=== PATIENT | male | born 1960 | race Caucasian/White ===

== ENCOUNTER 2018-12-10 00:53 | Emergency (ER) | payer OTHER ==
--- NOTE | 2018-12-10 02:13 | XR ---
EXAMINATION TYPE: XR shoulder complete LT DATE OF EXAM: 12/10/2018 COMPARISON: NONE HISTORY: Shoulder pain TECHNIQUE: 3 views FINDINGS: There is moderate narrowing of the glenohumeral joint space with spur formation. I see no f racture nor dislocation. AC joint is intact. IMPRESSION: Moderate osteoarthritis of the glenohumeral joint. No fracture seen.
--- NOTE | 2018-12-10 02:44 | ED ---
General Adult HPI - General Chief complaint: Extremity Injury, Upper Stated complaint: Shoulder Injury, [facility] Time Seen by Provider: 12/10/18 01:14 Source: patient Mode of arrival: ambulatory Limitations: no limitations - History of Present Illness Initial comments: Patient is a 58-year-old male with history of osteoarthritis of the shoulders is presenting to the emergency department with a chief complaint of shoulder pain. 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 Patient reports limited range of motion with abduction above 90. Patient reports pain along the anterior and lateral deltoid. Patient reports the pain is alleviated at rest exacerbated with movement. Patient denies any numbness or tingling. Patient has full range of motion distally to the shoulder. Patient denies taking any medication to alleviate the symptoms. Patient reports the pain is a 5 is sharp when he moves his hand. - Related Data Allergies Allergy/AdvReac Type Severity Reaction Status Date / Time bee pollen Allergy Anaphylaxis Verified 12/10/18 00:59 Review of Systems ROS Statement: Those systems with pertinent positive or pertinent negative responses have been documented in the HPI. ROS Other: All systems not noted in ROS Statement are negative. Past Medical History Past Medical History: Atrial Fibrillation History of Any Multi-Drug Resistant Organisms: None Reported Past Surgical History: Hernia Repair, Orthopedic Surgery Past Psychological History: No Psychological Hx Reported Smoking Status: Never smoker Past Alcohol Use History: None Reported Past Drug Use History: None Reported General Exam Limitations: no limitations General appearance: alert, in no apparent distress Head exam: Present: atraumatic, normocephalic, normal inspection Eye exam: Present: normal appearance, PERRL, EOMI Pupils: Present: normal accommodation ENT exam: Present: normal exam, mucous membranes moist, normal external ear exam Neck exam: Present: normal inspection, full ROM Respiratory exam: Present: normal lung sounds bilaterally Cardiovascular Exam: Present: regular rate, normal rhythm, normal heart sounds Extremities exam: Present: normal inspection (No bony abnormalities felt), tenderness (Anterior lateral left deltoid tenderness), normal capillary refill, other (+2 ulnar and radial pulses bilaterally.). Absent: full ROM (Limited range of motion above 90 with abduction) Back exam: Present: normal inspection, full ROM Neurological exam: Present: alert, oriented X3 Psychiatric exam: Present: normal affect, normal mood Skin exam: Present: warm, intact, normal color Course Vital Signs 12/10/18 12/10/18 00:55 03:03 Temperature 97.8 F 97 F L Pulse Rate 62 66 Respiratory 18 16 Rate Blood Pressure 142/88 136/100 O2 Sat by Pulse 99 97 Oximetry Medical Decision Making - Medical Decision Making Patient is a 58-year-old male with history of osteoarthritis is presenting to the emergency department with a chief complaint of shoulder pain. 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 Patient has pain and limited range of motion above 90 with abduction. Patient does have a positive Garay a positive empty can test. Shoulder x-rays negative I do suspect the patient to have some rotator cuff injury. Patient advised to apply ice compress an alternate between Tylenol and ibuprofen for pain control. Patient advised to avoid extraneous physical activity to promote healing. Patient advised to follow-up with orthopedics if symptoms don't improve within a week. Strict return parameters were thoroughly discussed the patient was understanding and agreeable. Case discussed physician. Disposition Clinical Impression: Left shoulder pain, Sprain of left shoulder Disposition: HOME SELF-CARE Condition: Stable Instructions (If sedation given, give patient instructions): Shoulder Sprain (ED) Additional Instructions: Please follow with orthopedics if symptoms do not improve. Alternate between Tylenol and ibuprofen for pain control. Apply ice compress to minimize symptoms. Is patient prescribed a controlled substance at d/c from ED?: No Referrals: Cullen Howard MD [Primary Care Provider] - 1-2 days Eddie Denton MD [STAFF PHYSICIAN] - 1-2 days Time of Disposition: 02:44
[2018-12-10 03:03] VITALS: BP 136/100; PULSE 66; RESP 16; TEMP 97
== END 2018-12-10 02:47 | disposition home or self-care (01) ==
LOC: EC 00:53
DX: S43.402A Unspecified sprain of left shoulder joint, initial encounter (principal); M19.012 Primary osteoarthritis, left shoulder; J30.1 Allergic rhinitis due to pollen; Z91.030 Bee allergy status; X50.0XXA Overexertion from strenuous movement or load, initial encounter; Y93.89 Activity, other specified; Y99.0 Civilian activity done for income or pay; Y92.69 Other specified industrial and construction area as the place of occurrence of the external cause
CPT/HCPCS: 99283

== ENCOUNTER → 2019-06-27 | Outpatient (CLI) | payer SELFPAY | END | disposition home or self-care (01) | LOC: LABWHC1 11:53 | PROVIDERS: ATTEND Family Medicine | DX: R50.9 Fever, unspecified (principal); R05 Cough; R53.81 Other malaise; Z11.59 Encounter for screening for other viral diseases | CPT/HCPCS: 87498; 87502; 87634; 87635; 87798 ==

== ENCOUNTER → 2019-08-06 | Outpatient (CLI) | payer BC | END | disposition home or self-care (01) | LOC: LABWHC1 11:13 | PROVIDERS: ATTEND Family Medicine | DX: Z11.59 Encounter for screening for other viral diseases (principal) | CPT/HCPCS: 87635 ==

== ENCOUNTER 2021-01-13 12:02 | Emergency (ER) | payer BC ==
[2021-01-13] MEDS ORDERED: ACETAMINOPHEN TAB 325 MG TAB PO STA (12:32)
--- NOTE | 2021-01-13 12:49 | ED ---
URI HPI - General Chief Complaint: Upper Respiratory Infection Stated Complaint: Covid exposure, symptoms Time Seen by Provider: 01/13/21 12:29 Source: patient, RN notes reviewed Mode of arrival: ambulatory Limitations: no limitations - History of Present Illness Initial Comments: This a 60-year-old male presents emergency Department chief complaint of fever cough congestion. 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 Patient states that he is concerning may have it. He has not taken any recent Tylenol Motrin. Temp currently 101. Patient states he did cough up some congestion or shortness of breath no chest pain does complain of body aches. - Related Data Allergies Allergy/AdvReac Type Severity Reaction Status Date / Time bee pollen Allergy Anaphylaxis Verified 01/13/21 12:20 Review of Systems ROS Statement: Those systems with pertinent positive or pertinent negative responses have been documented in the HPI. ROS Other: All systems not noted in ROS Statement are negative. Past Medical History Past Medical History: Atrial Fibrillation History of Any Multi-Drug Resistant Organisms: None Reported Past Surgical History: Hernia Repair, Orthopedic Surgery Past Psychological History: No Psychological Hx Reported Past Alcohol Use History: None Reported Past Drug Use History: None Reported General Exam Limitations: no limitations General appearance: alert, in no apparent distress Head exam: Present: atraumatic, normocephalic, normal inspection Eye exam: Present: normal appearance, PERRL, EOMI. Absent: scleral icterus, conjunctival injection, periorbital swelling ENT exam: Present: normal exam, mucous membranes moist Neck exam: Present: normal inspection, full ROM. Absent: tenderness, meningismus, lymphadenopathy Respiratory exam: Present: normal lung sounds bilaterally. Absent: respiratory distress, wheezes, rales, rhonchi, stridor Cardiovascular Exam: Present: regular rate, normal rhythm, normal heart sounds. Absent: systolic murmur, diastolic murmur, rubs, gallop, clicks Neurological exam: Present: alert Skin exam: Present: warm, dry, intact, normal color. Absent: rash Course Vital Signs 01/13/21 12:15 Temperature 101.2 F H Pulse Rate 79 Respiratory 19 Rate Blood Pressure 129/85 O2 Sat by Pulse 96 Oximetry Medical Decision Making - Medical Decision Making Patient presented to the ED for cold exposure. Patient PCR nasal swab for COVID came back positive. Patient will be given infusion of monoclonal antibodies. Patient counseled on symptomatic relief with Tylenol, Motrin. return parameters were discussed. - Lab Data Lab Results 01/13/21 Range/Units 12:19 Coronavirus (PCR) Detected A (Not Detectd) Disposition Clinical Impression: COVID-19 Disposition: HOME SELF-CARE Condition: Stable Instructions (If sedation given, give patient instructions): Coronavirus Disease 2019 (COVID-19) Additional Instructions: Please return to the Emergency Department if symptoms worsen or any other concerns. Is patient prescribed a controlled substance at d/c from ED?: No Referrals: Cullen Howard MD [Primary Care Provider] - 1-2 days Time of Disposition: 13:37
[2021-01-13] MEDS ORDERED: SODIUM CHLORIDE 0.9% 50 ML IVPB ONE (14:30)
[2021-01-13] MEDS ORDERED: CASIRIVIMAB (REGN10933) (EUA) 600 MG, IMDEVIMAB (REGN10987) (EUA) 600 MG in SODIUM CHLO... IVPB ONE (14:45)
[2021-01-13 16:30] VITALS: BP 108/72; PULSE 85; RESP 16; TEMP 99.2
== END 2021-01-13 16:37 | disposition home or self-care (01) ==
LOC: EC 12:02
DX: U07.1 COVID-19 (principal)
CPT/HCPCS: 99283 ×2; 87635; Q0243

== ENCOUNTER 2021-10-27 05:02 | Observation (INO) | payer BC ==
[2021-10-27] MEDS ORDERED: METOPROLOL TARTRATE 5 MG/5 ML VIAL IVP STA (05:21)
[2021-10-27] MEDS ORDERED: DILTIAZEM 5 MG/ML 5 ML VIAL IVP STA (05:21)
--- NOTE | 2021-10-27 05:21 | ED ---
Arrhythmia/Palpitations HPI - General Chief Complaint: Arrhythmia/Palpitations Stated Complaint: chest pain Time Seen by Provider: 10/27/21 05:14 Source: patient Mode of arrival: ambulatory - Related Data Home Medications Medication Instructions Recorded Confirmed Ascorbic Acid [Vitamin C] 500 mg PO DAILY 01/13/21 01/13/21 Cholecalciferol [Vitamin D3 (25 25 mcg PO DAILY 01/13/21 01/13/21 Mcg = 1000 Iu)] EPINEPHrine (Auto Inject) [Epipen] 0.3 mg IM ONCE PRN 01/13/21 01/13/21 Magnesium 200 mg PO DAILY 01/13/21 01/13/21 Metoprolol Succinate [Toprol XL] 25 mg PO DAILY 01/13/21 01/13/21 Propafenone [Rythmol] 150 mg PO BID 01/13/21 01/13/21 Allergies Allergy/AdvReac Type Severity Reaction Status Date / Time bee pollen Allergy Anaphylaxis Verified 10/27/21 05:08 Review of Systems ROS Statement: Those systems with pertinent positive or pertinent negative responses have been documented in the HPI. ROS Other: All systems not noted in ROS Statement are negative. Past Medical History Past Medical History: Atrial Fibrillation History of Any Multi-Drug Resistant Organisms: None Reported Past Surgical History: Hernia Repair, Orthopedic Surgery Past Psychological History: No Psychological Hx Reported Smoking Status: Never smoker Past Alcohol Use History: None Reported Past Drug Use History: None Reported Course Vital Signs 10/27/21 10/27/21 05:03 05:45 Temperature 98.4 F Pulse Rate 130 H 68 Respiratory 19 18 Rate Blood Pressure 128/85 105/75 O2 Sat by Pulse 99 96 Oximetry EKG Findings - EKG Comments: EKG Findings:: EKG is a flutter 131 QRS 102 QTC 351 Medical Decision Making - Lab Data Result diagrams: 10/27/21 05:30 10/27/21 05:30 Lab Results 10/27/21 10/27/21 Range/Units 05:30 05:30 WBC 8.1 (3.8-10.6) k/uL RBC 5.48 (4.30-5.90) m/uL Hgb 17.1 (13.0-17.5) gm/dL Hct 51.7 (39.0-53.0) % MCV 94.3 (80.0-100.0) fL MCH 31.1 (25.0-35.0) pg MCHC 33.0 (31.0-37.0) g/dL RDW 12.5 (11.5-15.5) % Plt Count 289 (150-450) k/uL MPV 7.4 Neutrophils % 62 % Lymphocytes % 29 % Monocytes % 6 % Eosinophils % 2 % Basophils % 1 % Neutrophils # 5.0 (1.3-7.7) k/uL Lymphocytes # 2.3 (1.0-4.8) k/uL Monocytes # 0.5 (0-1.0) k/uL Eosinophils # 0.2 (0-0.7) k/uL Basophils # 0.1 (0-0.2) k/uL Sodium 140 (137-145) mmol/L Potassium 4.9 (3.5-5.1) mmol/L Chloride 111 H (98-107) mmol/L Carbon Dioxide 20 L (22-30) mmol/L Anion Gap 9 mmol/L BUN 19 (9-20) mg/dL Creatinine 1.01 (0.66-1.25) mg/dL Est GFR (CKD-EPI)AfAm >90 (>60 ml/min/1.73 sqM) Est GFR (CKD-EPI)NonAf 80 (>60 ml/min/1.73 sqM) Glucose 105 H (74-99) mg/dL Calcium 9.1 (8.4-10.2) mg/dL Magnesium 2.0 (1.6-2.3) mg/dL Total Bilirubin 0.9 (0.2-1.3) mg/dL AST 37 (17-59) U/L ALT 24 (4-49) U/L Alkaline Phosphatase 55 (38-126) U/L Total Protein 7.7 (6.3-8.2) g/dL Albumin 4.5 (3.5-5.0) g/dL Lipase 39 (23-300) U/L Disposition Clinical Impression: Palpitations, Tachycardia, Atrial flutter, Atrial fibrillation, Atrial fibril lation with RVR Disposition: ADMITTED IP TO THIS HOSP Condition: Good Is patient prescribed a controlled substance at d/c from ED?: No Referrals: Cullen Howard MD [Primary Care Provider] - 1-2 days
[2021-10-27 05:43] LABS: Basophils # (A) 0.1 k/uL (0-0.2); Basophils % (A) 1 %; Eosinophils # (A) 0.2 k/uL (0-0.7); Eosinophils % (A) 2 %; HCT 51.7 % (39.0-53.0); HGB 17.1 gm/dL (13.0-17.5); Lymphocytes # (A) 2.3 k/uL (1.0-4.8); Lymphocytes % (A) 29 %; MCH 31.1 pg (25.0-35.0); MCV 94.3 fL (80.0-100.0); Mean Platelet Volume 7.4; Monocytes # (A) 0.5 k/uL (0-1.0); Monocytes % (A) 6 %; Neutrophils % (A) 62 %; Platelet Count 289 k/uL (150-450); RBC 5.48 m/uL (4.30-5.90); RDW 12.5 % (11.5-15.5); WBC 8.1 k/uL (3.8-10.6)
[2021-10-27 05:54] LABS: ALT 24 U/L (4-49); AST 37 U/L (17-59); African American GFR (CKD) >90 (>60 ml/min/1.73 sqM); Albumin 4.5 g/dL (3.5-5.0); Alkaline Phosphatase 55 U/L (38-126); Anion Gap 9 mmol/L; Blood Urea Nitrogen 19 mg/dL (9-20); Calcium 9.1 mg/dL (8.4-10.2); Carbon Dioxide 20 mmol/L (22-30); Chloride 111 mmol/L (98-107); Glucose 105 mg/dL (74-99); Lipase 39 U/L (23-300); Non-African American GFR(CKD) 80 (>60 ml/min/1.73 sqM); Sodium 140 mmol/L (137-145); Total Bilirubin 0.9 mg/dL (0.2-1.3); Total Protein 7.7 g/dL (6.3-8.2)
[2021-10-27 05:55] LABS: Potassium 4.9 mmol/L (3.5-5.1)
[2021-10-27] MEDS ORDERED: ONDANSETRON 4 MG/2 ML VIAL IVP PRN (06:02)
[2021-10-27] MEDS ORDERED: NALOXONE 0.4 MG/ML 1 ML VIAL IV PRN (06:02)
[2021-10-27] MEDS ORDERED: SODIUM CHLORIDE 0.9% 1,000 ML IV SCH (06:15)
--- NOTE | 2021-10-27 08:36 | P.CRDCN ---
History of Present Illness History of present illness: HISTORY OF PRESENTING ILLNESS This is a pleasant 61-year-old male past medical history significant for paroxysmal atrial fibrillation, enlarged ascending aorta. He follows in the office with Dr. Trejo. We have been asked to see in consultation for atrial fibrillation. Patient presents to the emergency department with complaints of palpitations, noticed his heart racing, that began yesterday, he was concerned that he was back in A fib and presented to the ER. He denies any chest pain, s hortness of breath, lightheadedness or dizziness. In the ER, patient found to be in atrial flutter with rapid ventricular response. He was given 15mg IV Cardizem in the ER, patient continued to be in atrial flutter with heart rates improvement in the 60s. This morning patient continues to be in atrial flutter with rapid ventricular response, heart rates [id number]. He does not have a history of CAD, [place], Stroke, Diabetes or Hypertension. He is a non-smoker. DIAGNOSTICS * EKG reveals atrial flutter, heart rate 131. Repeat EKG revealed atrial flutter, heart rate 67. Prior EKG in the office 08/2021 patient was in sinus rhythm. * Laboratory reviewed, CBC unremarkable, sodium 140, potassium 4.9, BUN 19, serum creatinine 1.01, troponin negative, proBNP 799, magnesium 2.0 * Current home medications include Rythmol 150 mg twice a day, Toprol-XL 25 mg daily, Nexium * Echocardiogram in the office 01/2021 revealed EF 55%, ascending aorta is enlarged, mild mitral regurgitation, mild tricuspid regurgitation * 24-hour Holter monitor in 12/2020 revealed sinus rhythm. REVIEW OF SYSTEMS At the time of my exam: CONSTITUTIONAL: Denies fever or chills. CARDIOVASCULAR: Denies chest pain, shortness of breath, orthopnea, PND. Reports palpitations. RESPIRATORY: Denies cough. GASTROINTESTINAL: Denies abdominal pain, diarrhea, constipation, nausea or vomiting. MUSCULOSKELETAL: Denies myalgias. NEUROLOGIC: Denies numbness, tingling, headacbe or weakness. ENDOCRINE: Denies fatigue, weight change, polydipsia or polyurina. GENITOURINARY: Denies burning, hematuria or urgency with micturation. HEMATOLOGIC: Denies history of anemia or bleeding. PHYSICAL EXAMINATION Vitals blood pressure 105/75, heart rate 130 afebrile, saturation 96% on room air CONSTITUTIONAL: No apparent distress. HEENT: Head is normocephalic. Pupils are equal, round. Sclerae anicteric. Mucous membranes of the mouth are moist. No JVD. No carotid bruit. CHEST EXAMINATION: Lungs are clear to auscultation. No chest wall tenderness is noted on palpation or with deep breathing. HEART EXAMINATION: Irregular, tachycardic rate and rhythm. S1, S2 heard. Systolic murmur at right sternal border. No gallops or rub. ABDOMEN: Soft, nontender. Positive bowel sounds. EXTREMITIES: 2+ peripheral pulses, no lower extremity edema and no calf tenderness. SKIN: warm, dry NEUROLOGIC EXAMINATION: Patient is awake, alert and oriented x3. ASSESSMENT Typical atrial flutter -[id number] score 0 History of paroxysmal atrial fibrillation PLAN -Increase Rhythmol 150mg TID -Increase metoprolol succinate 50mg daily -Start Xarelto 20mg daily, and assess for coverage -Obtain 2D echocardiogram -Continue cardiac telemetry -Consider SANDOR/Cardioversion pending patient's response/clinical course -Further recommendations based on clinical course Nurse practitioner note has been reviewed by physician. Signing provider agrees with the documented findings, assessment, and plan of care. Past Medical History Past Medical History: Atrial Fibrillation History of Any Multi-Drug Resistant Organisms: None Reported Past Surgical History: Hernia Repair, Orthopedic Surgery Past Psychological History: No Psychological Hx Reported Smoking Status: Never smoker Past Alcohol Use History: None Reported Past Drug Use History: None Reported Medications and Allergies Home Medications Medication Instructions Recorded Confirmed Type EPINEPHrine (Auto Inject) [Epipen] 0.3 mg IM ONCE PRN 01/13/21 10/27/21 History Metoprolol Succinate [Toprol XL] 25 mg PO DAILY 01/13/21 10/27/21 History Propafenone [Rythmol] 150 mg PO BID 01/13/21 10/27/21 History Esomeprazole Magnesium [NexIUM 20 mg PO DAILY 10/27/21 10/27/21 History 24Hr] Allergies Allergy/AdvReac Type Severity Reaction Status Date / Time bee pollen Allergy Anaphylaxis Verified 10/27/21 07:21 Physical Exam Vitals: Vital Signs Temp Pulse Resp BP Pulse Ox 10/27/21 05:45 68 18 105/75 96 10/27/21 05:03 98.4 F 130 H 19 128/85 99 Intake and Output 10/26/21 10/27/21 10/27/21 22:59 06:59 14:59 Other: Weight 88.904 kg Results 10/27/21 05:30 10/27/21 05:30 Cardiac Enzymes 10/27/21 10/27/21 Range/Units 05:30 05:30 AST 37 (17-59) U/L Troponin I 0.027 (0.000-0.034) ng/mL CBC 10/27/21 Range/Units 05:30 WBC 8.1 (3.8-10.6) k/uL RBC 5.48 (4.30-5.90) m/uL Hgb 17.1 (13.0-17.5) gm/dL Hct 51.7 (39.0-53.0) % Plt Count 289 (150-450) k/uL Comprehensive Metabolic Panel 10/27/21 Range/Units 05:30 Sodium 140 (137-145) mmol/L Potassium 4.9 (3.5-5.1) mmol/L Chloride 111 H (98-107) mmol/L Carbon Dioxide 20 L (22-30) mmol/L BUN 19 (9-20) mg/dL Creatinine 1.01 (0.66-1.25) mg/dL Glucose 105 H (74-99) mg/dL Calcium 9.1 (8.4-10.2) mg/dL AST 37 (17-59) U/L ALT 24 (4-49) U/L Alkaline Phosphatase 55 (38-126) U/L Total Protein 7.7 (6.3-8.2) g/dL Albumin 4.5 (3.5-5.0) g/dL Current Medications Generic Name Dose Route Start Last Admin Trade Name Freq PRN Reason Stop Dose Admin Sodium Chloride 1,000 mls @ 130 mls/hr 10/27/21 06:15 10/27/21 06:18 Saline 0.9% IV 130 mls/hr .[id number] NEHA Administration Metoprolol Succinate 50 mg 10/27/21 09:00 Metoprolol Succinate (Er) 50 Mg Tab.Er.24h PO DAILY NEHA Naloxone HCl 0.2 mg 10/27/21 06:02 Naloxone 0.4 Mg/Ml 1 Ml Vial IV Q2M PRN Opioid Reversal Ondansetron HCl 4 mg 10/27/21 06:02 Ondansetron 4 Mg/2 Ml Vial IVP Q8HR PRN Nausea And Vomiting Propafenone HCl 150 mg 10/27/21 09:00 Propafenone 150 Mg Tab PO TID [facility] Rivaroxaban 20 mg 10/27/21 17:30 Rivaroxaban 20 Mg Tab PO W/SUPPER [facility] Protocol Intake and Output 10/26/21 10/27/21 10/27/21 22:59 06:59 14:59 Other: Weight 88.904 kg 10/27/21 05:30 10/27/21 05:30
[2021-10-27 08:43] VITALS: TEMP 97.7
[2021-10-27] MEDS ORDERED: METOPROLOL SUCCINATE (ER) 50 MG TAB.ER.24H PO SCH (09:00)
[2021-10-27] MEDS: PROPAFENONE 150 MG TAB PO SCH (09:47)
--- NOTE | 2021-10-27 09:48 | CA ---
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 18 - 58 / 22 - 52 cm??? M-MODE Aortic Root Diameter MM 3.7 cm MV E Point Septal Separation 0.9 cm AV Cusp Separation MM 2.0 cm DOPPLER AV Peak Velocity 243.3 cm/s AV Peak Gradient 23.7 mmHg AV Mean Velocity 168.5 cm/s AV Mean Gradient 13.4 mmHg AV Velocity Time Integral 51.3 cm MV Area PHT 3.9 cm??? MV Deceleration Time 215.9 ms TR Peak Velocity 197.4 cm/s TR Peak Gradient 15.6 mmHg Right Ventricular Systolic Press 20.6 mmHg FINDINGS Left Ventricle Left ventricular ejection fraction is estimated at 45 %. Left ventricular cavity size normal. Mild concentric left ventricular hypertrophy. Right Ventricle Normal right ventricular size and function. Right ventricular systolic pressure within normal limits. Right Atrium Normal right atrial size. Left Atrium Mildly increased left atrial volume. Mildly increased left atrial area. No evidence for an atrial septal defect. Anurysmal atrial septum Mitral Valve Mitral valve thickened. Mild mitral annular calcification. Aortic Valve Moderate aortic valve sclerosis. Mild aortic stenosis with a peak gradient of 24 mmHg and a mean gradient of 13 mmHg. No aortic regurgitation. Tricuspid Valve Mild tricuspid regurgitation. Pulmonic Valve Pulmonic valve not well visualized. Pericardium Normal pericardium. No pericardial effusion. Aorta Normal size aortic root and proximal ascending aorta. CONCLUSIONS Mild LV systolic dysfunction Mild aortic stenosis Previewed by: Dr. Kaleb Trejo MD (Electronically Signed) Final Date: 27 October 2021 09:47
[2021-10-27 13:24] VITALS: BP 105/67; PULSE 72; RESP 18
--- NOTE | 2021-10-27 14:26 | P.HPIM ---
History of Present Illness H&P Date: 10/27/21 History of Presenting Illness: Patient is a very pleasant 61-year-old male with a past medical history paroxysmal atrial fibrillation not on anticoagulation, enlarged ascending aorta, an inguinal hernia status post repair. Patient presented to the emergency department with a chief complaint of palpitations. Patient reports yesterday while at rest he noticed that his heart felt like it was pounding/racing. Patient reports he has gone in and out of atrial fibrillation for many years and became concerned that he was back in A. fib with RVR. Patient reports he monitored it for a while and determined that he needed to come to the emergency department for evaluation. Patient reports that he only felt palpitations and denied ever experiencing any dizziness, lightheadedness, chest pain, shortness of breath, dyspnea with exertion, nausea, vomiting, or experiencing any nu mbness/tingling/weakness/swelling in his extremities. Upon arrival to the emergency department, patient underwent full evaluation. EKG completed revealing atrial flutter at 131 bpm. CBC and CMP showing no acute abnormalities. Troponin 0.027 and proBNP 799. Patient was admitted under our services with consultation to cardiology. Review of systems: Pertinent positives and negatives as discussed in HPI, a complete review of systems was performed and all other systems are negative. Physical exam: Vital signs reviewed and stable. General: Nontoxic, no distress and appears stated age. Derm: Skin warm and dry, normal coloration for ethnicity. Head: Atraumatic, normocephalic and symmetric. Eyes: EOMs intact, no lid lag, and anicteric sclera Mouth: no lip lesions, mucus membranes moist Cardiovascular: regular rate and rhythm with normal S1S2, no murmur, positive posterior tibial pulses bilaterally, and cap refill < 2 seconds. Lungs: Respirations even, regular, and unlabored on room air. Lungs CTA bilaterally, no rhonchi, no rales, no wheezing, and no accessory muscle usage. Abdominal: soft, nontender to palpation, no guarding, no appreciable organomegaly Ext: ROM intact. No gross muscle atrophy, no edema, no contractures Neuro: Speech clear, face symmetrical and CN II-XII grossly intact with no noted focal neuro deficits Psych: Alert and oriented to person, place, time, and situation. Appropriate and pleasant affect. Assessment and Plan of Care: Atrial flutter with RVR History of paroxysmal atrial fibrillation -Cardiology consult, appreciate further recommendations -Telemetry monitoring -Trend troponins -Cardiac diet -Cardiology increased both metoprolol and Rythmol. -Patient was started on anticoagulant with Xarelto. -Echocardiogram The patient is admitted with an anticipated less than 2 midnight stay for evaluation of atrial flutter with RVR CODE STATUS: Full code DVT prophylaxis: Xarelto Discussed with: Pt and RN Anticipated discharge date: Later today versus tomorrow morning Anticipated discharge place: Home A total of 40 minutes was spent on the care of this complex patient more than 50% of the time was spent in counseling and care coordination. Cali Carlson NP rendered care for this patient independently, reviewed the findings and plan as documented in the note above. I did not physically speak with or examine the patient on this date. Past Medical History Past Medical History: Atrial Fibrillation History of Any Multi-Drug Resistant Organisms: None Reported Past Surgical History: Hernia Repair, Orthopedic Surgery Past Psychological History: No Psychological Hx Reported Smoking Status: Never smoker Past Alcohol Use History: None Reported Past Drug Use History: None Reported Medications and Allergies Home Medications Medication Instructions Recorded Confirmed Type EPINEPHrine (Auto Inject) [Epipen] 0.3 mg IM ONCE PRN 01/13/21 10/27/21 History Metoprolol Succinate [Toprol XL] 25 mg PO DAILY 01/13/21 10/27/21 History Esomeprazole Magnesium [NexIUM 20 mg PO DAILY 10/27/21 10/27/21 History 24Hr] Propafenone [Rythmol] 150 mg PO TID #90 tab 10/27/21 Rx Rivaroxaban [Xarelto] 20 mg PO W/SUPPER #30 tab 10/27/21 Rx Allergies Allergy/AdvReac Type Severity Reaction Status Date / Time bee pollen Allergy Anaphylaxis Verified 10/27/21 07:21 Physical Exam Osteopathic Statement: *. No significant issues noted on an osteopathic structural exam other than those noted in the History and Physical/Consult. Vitals: Vital Signs Temp Pulse Pulse Resp BP Pulse Ox 10/27/21 08:40 97.7 F 131 H 131 H 18 103/59 96 10/27/21 05:45 68 18 105/75 96 10/27/21 05:03 98.4 F 130 H 19 128/85 99 Intake and Output 10/26/21 10/27/21 10/27/21 22:59 06:59 14:59 Other: Weight 88.904 kg Results CBC & Chem 7: 10/27/21 05:30 10/27/21 05:30 Labs: Abnormal Lab Results - Last 24 Hours (Table) 10/27/21 Range/Units 05:30 Chloride 111 H (98-107) mmol/L Carbon Dioxide 20 L (22-30) mmol/L Glucose 105 H (74-99) mg/dL
--- NOTE | 2021-10-27 14:59 | P.DS ---
Providers Date of admission: 10/27/21 06:02 Expected date of discharge: 10/27/21 Attending physician: Tariq Ratliff MD Consults: 10/27/21 06:02 Consult Physician Routine Consulting Provider: Nithya Cai Consult Reason/Comments: afib Do you want consulting provider notified?: Yes Primary care physician: [facility] Hospital Course: Discharge Diagnosis: Atrial flutter with RVR, continue metoprolol 25 mg daily. Rythmol has been increased from 150 mg twice daily up to 150 mg 3 times daily. Patient also started on anticoagulant, Xarelto and is recommended to follow up outpatient with PCP in 1-2 days and cardiology in 1 week to further discuss possibility of cardiac ablation. History of paroxysmal atrial fibrillation Hospital Course: Patient is a very pleasant 61-year-old male with a past medical history paroxysmal atrial fibrillation not on anticoagulation, enlarged ascending aorta, an inguinal hernia status post repair. Patient presented to the emergency department with a chief complaint of palpitations. Patient reports yesterday while at rest he noticed that his heart felt like it was pounding/racing. Patient reports he has gone in and out of atrial fibrillation for many years and became concerned that he was back in A. fib with RVR. Patient reports he sharla tored it for a while and determined that he needed to come to the emergency department for evaluation. Patient reports that he only felt palpitations and denied ever experiencing any dizziness, lightheadedness, chest pain, shortness of breath, dyspnea with exertion, nausea, vomiting, or experiencing any numbness/tingling/weakness/swelling in his extremities. Upon arrival to the emergency department, patient underwent full evaluation. EKG completed revealing atrial flutter at 131 bpm. CBC and CMP showing no acute abnormalities. Troponin 0.027 and proBNP 799. Patient was admitted under our services with consultation to cardiology. Cardiology evaluating increasing patient's cardiac medication regimen metoprolol and Rythmol and started patient on anticoagulation with Xarelto. Troponins were trended 0.027, 0.021, and 0.036. Patient converted back into sinus rhythm/sinus bradycardia. Metroprolol then decreased back down to patient's home dose of 25 mg daily. Rythmol dose to remain increased. Echocardiogram was completed revealing ejection fraction of 45% with mild concentric left ventricular hypertrophy and mild aortic stenosis. Patient remains in sinus rhythm/sinus bradycardia with rate in high 50s to low 60s. He is medically stable at this time. Patient reports previous feelings of palpitations completely resolved and he continues to deny having any complaints including headache, lightheadedness, dizziness, chest pain, shortness of breath, or experiencing any numbness/tingling/weakness in his extremities. Cardiology recommending outpatient follow-up in the office in one week and discussed possibility of cardiac ablation. Patient medically stable for discharge at this time and to follow-up with PCP in 1-2 days and cardiology in 1 week. Physical exam: Vital signs reviewed and stable. General: Nontoxic, no distress and appears stated age. Derm: Skin warm and dry, normal coloration for ethnicity. Head: Atraumatic, normocephalic and symmetric. Eyes: EOMs intact, no lid lag, and anicteric sclera Mouth: no lip lesions, mucus membranes moist Cardiovascular: regular rate and rhythm with normal S1S2, no murmur, positive posterior tibial pulses bilaterally, and cap refill < 2 seconds. Lungs: Respirations even, regular, and unlabored on room air. Lungs CTA bilaterally, no rhonchi, no rales, no wheezing, and no accessory muscle usage. Abdominal: soft, nontender to palpation, no guarding, no appreciable organomegaly Ext: ROM intact. No gross muscle atrophy, no edema, no contractures Neuro: Speech clear, face symmetrical and CN II-XII grossly intact with no noted focal neuro deficits Psych: Alert and oriented to person, place, time, and situation. Appropriate and pleasant affect. A total of 29 minutes of time were spent preparing this complex discharge summary. Pt was discharged on 10/27/21 at 2:10 PM. Patient Condition at Discharge: Stable Plan - Discharge Summary New Discharge Prescriptions: New Rivaroxaban [Xarelto] 20 mg PO W/SUPPER #30 tab Continue EPINEPHrine (Auto Inject) [Epipen] 0.3 mg IM ONCE PRN PRN Reason: Anaphylaxis Metoprolol Succinate [Toprol XL] 25 mg PO DAILY Esomeprazole Magnesium [NexIUM 24Hr] 20 mg PO DAILY Changed Propafenone [Rythmol] 150 mg PO TID #90 tab Discharge Medication List EPINEPHrine (Auto Inject) [Epipen] 0.3 mg IM ONCE PRN 01/13/21 [History] Metoprolol Succinate [Toprol XL] 25 mg PO DAILY 01/13/21 [History] Esomeprazole Magnesium [NexIUM 24Hr] 20 mg PO DAILY 10/27/21 [History] Propafenone [Rythmol] 150 mg PO TID #90 tab 10/27/21 [Rx] Rivaroxaban [Xarelto] 20 mg PO W/SUPPER #30 tab 10/27/21 [Rx] Follow up Appointment(s)/Referral(s): Cullen Howard MD [Primary Care Provider] - 1-2 days Kaleb Trejo MD [STAFF PHYSICIAN] - 1 Week Patient Instructions/Handouts: Atrial Flutter (DC) Activity/Diet/Wound Care/Special Instructions: Activity: As tolerated. Take breaks as needed. Diet: Heart healthy and carb consistent diet. Avoid salts, or foods with hidden salts such as canned or boxed foods and frozen dinners. Extra salt makes your heart work harder and traps the fluid in your body for longer. Special Instructions: Take all of your medications as directed and remember to keep all of your doctor's appointments and follow-up as needed. Thank you for allowing us to participate in your care, it was truly a pleasure having you for our patient!!! Discharge Disposition: HOME SELF-CARE
[2021-10-27] MEDS ORDERED: RIVAROXABAN 20 MG TAB PO SCH (17:30)
[2021-10-28] MEDS ORDERED: METOPROLOL SUCCINATE (ER) 25 MG TAB.ER.24H PO SCH (09:00)
== END 2021-10-27 15:32 | disposition home or self-care (01) ==
LOC: EC 05:02 → 6NMEDSUR 06:02
PROVIDERS: ADMIT Internal Medicine; ATTEND Internal Medicine
DX: I48.3 Typical atrial flutter (principal); I48.0 Paroxysmal atrial fibrillation; I08.2 Rheumatic disorders of both aortic and tricuspid valves; I77.89 Other specified disorders of arteries and arterioles; Z79.899 Other long term (current) drug therapy; Z91.030 Bee allergy status; Z98.890 Other specified postprocedural states
CPT/HCPCS: 96374; 99285; 36415; 93005; 93306; 83880; 80053; 83690; 83735; 84484; 85025; G0378

== ENCOUNTER 2023-05-26 03:28 | Emergency (ER) | payer BC, OTHER ==
[2023-05-26 03:35] VITALS: BP 155/93; PULSE 60; RESP 18; TEMP 97.2
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
[2023-05-26 09:24] LABS: Hepatitis B Surface AB- Quant 9.9 mIU/mL; Hepatitis B Surface Antigen Nonreactive; Hepatitis C IgG Antibody Nonreactive
[2023-05-26 14:58] LABS: HIV 2 AB Non-Reactive (Non-Reactive); HIV AB P24 Non-Reactive (Non-Reactive); HIV P24 AG Non-Reactive (Non-Reactive)
== END 2023-05-26 04:15 | disposition home or self-care (01) ==
LOC: EC 03:28
DX: Z77.21 Contact with and (suspected) exposure to potentially hazardous body fluids (principal); I48.91 Unspecified atrial fibrillation; Z91.030 Bee allergy status
CPT/HCPCS: 36415; 86704; 86706; 86803; 87340; 87390; 99282

== ENCOUNTER 2023-10-15 15:32 | Inpatient (IN) | payer OTHER, BC ==
--- NOTE | 2023-10-15 16:35 | ED ---
Chest Pain HPI - General Chief Complaint: Chest Pain Stated Complaint: HTN, chest pain Time Seen by Provider: 10/15/23 16:01 Source: patient Mode of arrival: ambulatory Limitations: no limitations - History of Present Illness Initial Comments: Patient is a 63-year-old gentleman past medical history atrial fibrillation not on thinners, on metoprolol, presenting today for palpitations. Patient states that he can feel when he goes into atrial fibrillation. He woke up at 230 this morning and felt his heart going fast. He checked his home monitor technician which told him his heart rate was in the 200s and he was in sinus tachycardia. He tried to relax and took 12.5 mg of metoprolol and ultimately his heart rate decreased into the 140s and his monitor said that he was in atrial fibrillation. Patient endorses associated shortness of breath with ambulation which is not normal for him. Endorses chest tightness. Denies lightheadedness or dizziness. Denies illicit drug use, fevers, chills, vomiting, diarrhea, cough, chest pain, lower extremity swelling, recent surgeries, hospitalizations or travel, patient does vape but is a non-smoker. Patient is not on blood thinners. States that he is typically in sinus rhythm. 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 Elena annually. - Related Data Home Medications Medication Instructions Recorded Confirmed Metoprolol Succinate [Toprol XL] 12.5 mg PO BID 01/13/21 10/15/23 Esomeprazole Magnesium [NexIUM 20 mg PO DAILY 10/27/21 10/15/23 24Hr] Propafenone [Rythmol] 150 mg PO BID 10/15/23 10/15/23 Allergies Allergy/AdvReac Type Severity Reaction Status Date / Time bee pollen Allergy Anaphylaxis Verified 10/15/23 16:34 Review of Systems ROS Statement: Those systems with pertinent positive or pertinent negative responses have been documented in the HPI. EKG Findings - EKG Comments: EKG Findings:: A-fib with RVR. Rate 126 bpm. QT/QTc 271/346 ms. Borderline left axis deviation. Compared to EKG performed on 10/27/2021, patient also in atrial fibrillation with RVR during that visit, no significant changes from prior EKG. Repeat EKG showed rate controlled, atrial fibrillation, rate 55 bpm, normal intervals Past Medical History Past Medical History: Atrial Fibrillation History of Any Multi-Drug Resistant Organisms: None Reported Past Surgical History: Hernia Repair, Orthopedic Surgery Past Psychological History: No Psychological Hx Reported Smoking Status: Never smoker Past Alcohol Use History: None Reported Past Drug Use History: None Reported General Exam - General Exam Comments Initial Comments: PE: CONSTITUTIONAL: [no apparent distress, well appearing] SKIN: [warm, dry, no jaundice, hives or petechiae] EYES:[ pupils are equally round, extraocular movements intact without nystagmus, clear conjunctiva, non-icteric sclera] HENT: [normocephalic, atraumatic, moist mucus membranes, oropharynx clear without exudates] NECK: , [Full range of motion, normal appearance] PULMONARY: [clear to auscultation without wheezes, rhonchi, or rales, normal excursion, no accessory muscle use and no stridor] CARDIOVASCULAR:[Limited by rate /tachycardia, irregular rhythm, normal S1 and S2. No appreciated murmurs, rubs or gallops. Strong radial pulses with intact distal perfusion. No lower extremity edema] GASTROINTESTINAL: [soft, non-tender, non-distended, no palpable masses, no rebound or guarding. No hepatosplenomegaly] MUSCULOSKELETAL: [Extremities have no gross deformity, no edema, redness, or swelling. No calf swelling ot TTP. ] NEUROLOGIC: [_a/o x 3, GCS 15, normal mentation and speech. Moves all extremities x 4 without motor or sensory deficit] PSYCHIATRIC:[ _normal mood and affect, thought process is clear and linear] Limitations: no limitations Course Vital Signs 10/15/23 10/15/23 10/15/23 15:36 16:30 17:34 Temperature 97.4 F L Pulse Rate 113 H 132 H 116 H Pulse Rate [ Polisher Hand ] Respiratory 20 20 20 Rate Blood Pressure 120/62 115/75 108/71 Blood Pressure [Right Arm Sitting] O2 Sat by Pulse 100 97 97 Oximetry 10/15/23 10/15/23 10/15/23 18:14 18:41 20:30 Temperature Pulse Rate 50 L 66 128 H Pulse Rate [ Polisher Hand ] Respiratory 18 20 20 Rate Blood Pressure 108/71 114/70 84/67 Blood Pressure [Right Arm Sitting] O2 Sat by Pulse 99 99 98 Oximetry 10/15/23 10/15/23 21:05 21:18 Temperature 97.6 F Pulse Rate 112 H Pulse Rate [ 105 H Polisher Hand ] Respiratory 18 16 Rate Blood Pressure 90/63 Blood Pressure 109/75 [Right Arm Sitting] O2 Sat by Pulse 98 98 Oximetry - Reevaluation(s) Reevaluation #1: Reassessed patient, heart rate approximately 116, patient is still symptomatic, will give additional 20 mg bolus of Cardizem 10/15/23 17:45 10/20/23 14:27 Reevaluation #2: After second Cardizem bolus, heart rate decreased to 55 however on reassessment patient's rate increased into the 110s, though patient is up and walking around. Will restart Cardizem drip, if patient continues to be heart rate greater than 110 will give dose of metoprolol, plan to admit, will initiate heparin drip and then since that patient may need to be cardioverted. 10/15/23 19:19 10/20/23 14:27 Chest Pain MDM - MDM Was pt. sent in by a medical professional or institution (, PA, [facility], urgent care, hospital, or senior care...) When possible be specific @ -No Did you speak to anyone other than the patient for history (EMS, parent, family, police, friend...)? What history was obtained from this source @ -No Did you review nursing and triage notes (agree or disagree)? Why? @ -I reviewed and agree with nursing and triage notes Were old charts reviewed (outside hosp., previous admission, EMS record, old EKG, old radiological studies, urgent care reports/EKG's, senior care records)? Report findings @ -No chart available to review Differential Diagnosis (chest pain, altered mental status, abdominal pain women, abdominal pain men, vaginal bleeding, weakness, fever, dyspnea, syncope, headache, dizziness, GI bleed, back pain, seizure, CVA, palpatations, mental health, musculoskeletal)? @Parental diagnosis remains broad however top considerations include: Ventricular arrhythmias, atrial arrhythmias, ACS, anemia, thyrotoxicosis, electrolyte imbalance, hypokalemia, pulmonary embolism,drugs, alcohol, anxiety, stress.... This is not meant to be an all-inclusive list. EKG interpreted by me (3pts min.). @ -As above X-rays interpreted by me (1pt min.). @ -Chest x-ray negative for acute cardiopulmonary disease, reviewed chest x-ray and agree with radiologist interpretation, I see no cardiomegaly, no wide mediastinum, no pneumothorax, no consolidations or effusions CT interpreted by me (1pt min.). @ -None done U/S interpreted by me (1pt. min.). @ -None done What testing was considered but not performed or refused? (CT, X-rays, U/S, labs)? Why? @ -None What meds were considered but not given or refused? Why? @ -Consider metoprolol however after patient rested, with restart of Cardizem drip rate remained controlled Did you discuss the management of the patient with other professionals (professionals i.e. , PA, [facility], lab, RT, psych nurse, child protective services social worker, dictaphone transcriber, teacher, community arts officer, case folder)? Give summary @ -No Was smoking cessation discussed for >3mins.? @ -No Was critical care preformed (if so, how long)? @ -Yes, 35 minutes, obtaining history, examination of patient, ordering and performing treatments, ordering and interpreting labs and imaging, reassessment of patient Were there social determinants of health that impacted care today? How? (Homelessness, low income, unemployed, alcoholism, drug addiction, transportation, low edu. Level, literacy, decrease access to med. care, usp, rehab)? @ -No Was there de-escalation of care discussed even if they declined (Discuss DNR or withdrawal of care, Hospice)? DNR status @ -No What co-morbidities impacted this encounter? (DM, HTN, Smoking, COPD, CAD, Cancer, CVA, ARF, Chemo, Hep., AIDS, mental health diagnosis, sleep apnea, morbid obesity)? @ -None Was patient admitted / discharged? Hospital course, mention meds given and route, prescriptions, significant lab abnormalities, going to OR and other pertinent info. @ -Hospital course Patient admitted- Patient is a pleasant 63-year-old gentleman past medical history of atrial fibrillation, not on anticoagulation presenting today for palpitations. In A- fib with RVR on arrival, BP 120/62. Patient given IV fluid bolus and 20 mg Cardizem bolus. Did seem to improve rate somewhat, with rates 110s-120s after first bolus, given 2nd bolus, HR dropped rate to 55, so drip was turned off, then when patient active rate increased to 110s, cardizem drip restarted with subsequent rate control. BP stable throughout. Plan for Cardizem bolus, aspirin, IV fluids, BMP, troponin, CMP, magnesium, chest x-ray level, repeat troponin in 3 hours, D-dimer, PT/PTT, CBC, TSH, UDS. Labs and imaging reviewed. Grossly within normal limits. Abnormal values not concerning for acute pathology related to presenting complaint. Given patient requiring continuous drip of cardizem patient admitted. Patient agreeable with plan of care. Patient admitted in stable condition. Undiagnosed new problem with uncertain prognosis? @ -No Drug Therapy requiring intensive monitoring for toxicity (Heparin, Nitro, Insulin, Cardizem)? @ -Cardizem Were any procedures done? @ -No Diagnosis/symptom? @Atrial fibrillation with RVR Acute, or Chronic, or Acute on Chronic? @ -Acute Uncomplicated (without systemic symptoms) or Complicated (systemic symptoms)? @ -[Complicated Side effects of treatment? @ -No Exacerbation, Progression, or Severe Exacerbation? @ -No Poses a threat to life or bodily function? How? (Chest pain, [place], [place], pneumonia, PE, COPD, DKA, ARF, appy, cholecystitis, CVA, Diverticulitis, Homicidal, Suicidal, threat to staff... and all critical care pts) @ -[Yes, if allowed to continue untreated or uncontrolled, could result in cardiac failure or stroke Critical Care Time Total Critical Care Time: 35 Disposition Clinical Impression: Atrial fibrillation with RVR Disposition: ADMITTED IP TO THIS HOSP Condition: Stable
[2023-10-15] MEDS: ASPIRIN 81 MG PO STA (16:41)
[2023-10-15] MEDS: SODIUM CHLORIDE 0.9% 1,000 ML IV STA (16:41)
[2023-10-15] MEDS: DILTIAZEM DRIP BOLUS FROM BAG 1 MG SOLN IV ONE ×2 (16:42→17:48)
[2023-10-15] MEDS: DILTIAZEM 125 MG in SODIUM CHLORIDE 0.9% 100 ML IV SCH (16:43)
--- NOTE | 2023-10-15 16:55 | XR ---
EXAMINATION TYPE: XR chest 2V DATE OF EXAM: 10/15/2023 COMPARISON: 12/01/2015 HISTORY: Shortness of breath TECHNIQUE: Frontal and lateral views of the chest are obtained. FINDINGS: Scattered senescent parenchymal changes noted. Hyperinflation compatible with COPD. No evidence for infiltrate. No evidence for atelectasis. Heart size is stable. Mediastinal structures are stable and grossly unremarkable. No evidence for hilar prominence. Degenerative changes dorsal spine. IMPRESSION: 1. No evidence for acute pulmonary disease.
[2023-10-15 17:07] LABS: Basophils % (A) 0 %; Eosinophils # (A) 0.1 k/uL (0-0.7); Eosinophils % (A) 2 %; HGB 16.5 gm/dL (13.0-17.5); Lymphocytes # (A) 1.3 k/uL (1.0-4.8); Lymphocytes % (A) 26 %; MCH 30.8 pg (25.0-35.0); MCV 93.3 fL (80.0-100.0); Mean Platelet Volume 6.9; Monocytes # (A) 0.3 k/uL (0-1.0); Monocytes % (A) 6 %; Neutrophils # (A) 3.2 k/uL (1.3-7.7); Neutrophils % (A) 64 %; Platelet Count 264 k/uL (150-450); RBC 5.36 m/uL (4.30-5.90); RDW 12.4 % (11.5-15.5); WBC 5.1 k/uL (3.8-10.6)
[2023-10-15 17:19] LABS: ALT 26 U/L (4-49); AST 29 U/L (17-59); African American GFR (CKD) >90 (>60 ml/min/1.73 sqM); Albumin 4.8 g/dL (3.5-5.0); Alkaline Phosphatase 61 U/L (38-126); Anion Gap 11 mmol/L; Blood Urea Nitrogen 15 mg/dL (9-20); Calcium 9.7 mg/dL (8.4-10.2); Carbon Dioxide 24 mmol/L (22-30); Chloride 107 mmol/L (98-107); Glucose 96 mg/dL (74-99); Magnesium 1.9 mg/dL (1.6-2.3); Non-African American GFR(CKD) 79 (>60 ml/min/1.73 sqM); Potassium 4.4 mmol/L (3.5-5.1); Sodium 142 mmol/L (137-145); Total Protein 7.8 g/dL (6.3-8.2)
[2023-10-15 17:20] LABS: INR 0.9 (<1.2); Partial Thromboplastin Time 28.1 sec (22.0-30.0); Prothrombin Time 10.5 sec (10.0-12.5)
[2023-10-15 17:27] LABS: NT-Pro-B-Type Natriuretic Pept 361 pg/mL
[2023-10-15] MEDS: SODIUM CHLORIDE 0.9% 1,000 ML IV ONE ×2 (17:48)
[2023-10-15] MEDS: DILTIAZEM 5 MG/ML 5 ML VIAL IVP STA (17:50)
[2023-10-15 18:06] LABS: Amphetamine Screen,Urine Not Detected (NotDetected); Barbiturate Screen,Urine Not Detected (NotDetected); Benzodiazepines Screen,Urine Not Detected (NotDetected); Cocaine Screen,Urine Not Detected (NotDetected); Methadone Screen, Urine Not Detected (NotDetected); Opiate Screen,Urine Not Detected (NotDetected); Oxycodone Screen, Urine Not Detected (NotDetected); Phencyclidine Screen,Urine Not Detected (NotDetected); Tricyclic Antidepressant,Urine Not Detected (NotDetected); Urn Cannabinoid Scrn Not Detected (NotDetected)
[2023-10-15] MEDS ORDERED: HEPARIN SODIUM 1,000 UN/ML (10ML VL) IV PRN (19:23)
[2023-10-15] MEDS: HEPARIN SOD,PORK IN 0.45% NACL 25,000 UNIT in 0.45% NACL 1 250ML.BAG IV SCH (20:32)
[2023-10-15] MEDS: HEPARIN SODIUM 1,000 UN/ML (10ML VL) IV ONE (20:32)
[2023-10-15] MEDS ORDERED: traMADol 50 MG TAB PO PRN (20:54)
[2023-10-15] MEDS ORDERED: ACETAMINOPHEN TAB 325 MG TAB PO PRN (20:54)
[2023-10-15] MEDS ORDERED: NALOXONE 0.4 MG/ML 1 ML VIAL IV PRN (20:54)
[2023-10-15] MEDS: FAMOTIDINE 20 MG TAB PO SCH (21:17)
--- NOTE | 2023-10-15 22:34 | P.HPIM ---
History of Present Illness H&P Date: 10/15/23 Chief Complaint: Afib with rvr Patient is a 63-year-old male with PMH of paroxysmal A-fib not on anticoagulation, enlarged ascending aorta and an inguinal hernia status post repair presented to the ER with a chief complaint of palpitations. Patient states that he works night shifts and woke up today at 1 PM with a feeling of "skipped heart beats" and palpitations. Patient states that he can feel when his is not in sinus rhythm. Patient used his portable EKG and found to be in sinus tachycardia with his heart rate in 200s. Patient took Rythmol and metoprolol which decreased his heart rate to 150s but his EKG in the ED showed that he was now in A-fib. Patient endorsed mild shortness of breath with chest tightness and lightheadedness. Denies loss of consciousness, fall, nausea or vomiting. Denies chest pain swelling in the legs or recent URTI, hospi talization or calf pain. Previous episodes of palpitation in October 2021 when patient presented with a similar chief complaint. Patient was diagnosed with atrial flutter with RVR. Cardiology was consulted and was started on metoprolol and Rythmol. Echocardiogram findings significant for LVEF at 45% with mild concentric left ventricular hypertrophy and mildly enlarged left atrium. The patient had reverted to sinus rhythm shortly after and had remained in it, thus was not started on anticoagulation. Patient reports to be largely symptom-free until today. EKG in the ER shows A-fib with heart rate of 126 bpm. QTc 346 ms, not prolonged. Chest x-ray in the ER shows no evidence of acute pulmonary disease. Vitals: Tmax 97.4 F, heart rate 112 bpm, respiratory rate 16, BP 90/63, O2 saturation 98% on room air. Laboratory evaluation is unremarkable. Review of systems: Pertinent positives and negatives as discussed in HPI, a complete review of systems was performed and all other systems are negative. Social history: Tobacco: 1 pack/day x 25 years; quit 15 years ago. Currently vapes occ asionally. Alcohol: None Recreational drugs: None Travel: None Occupation: Employed Family History: Nonsignificant Physical examination: Vital signs reviewed General: non toxic, no distress, appears at stated age, normal weight Derm: no unusual rashes/lesions, warm Head: atraumatic, normocephalic, symmetric Eyes: EOMI, no lid lag, anicteric sclera, pupils equal round reactive to light ENT: Nose and ears atraumatic Neck: No cervical lymphadenopathy, trachea midline, supple Mouth: no lip lesion, mucus membranes moist Cardiovascular: S1S2 reg, no murmur, positive dorsalis pedis pulse bilateral, no edema Lungs: CTA bilateral, no rhonchi, no rales, no accessory muscle use Abdominal: soft, nontender to palpation, no guarding Ext: muscle strength 5 out of 5 in all 4 extremities grossly, no gross muscle atrophy, no contractures, Neuro: CN II-XI grossly intact, no gross focal neuro deficits Psych: Alert, oriented, appropriate affect Assessment/Plan: 63-year-old male with PMH of paroxysmal A-fib not on anticoagulation, enlarged ascending aorta and an inguinal hernia status post repair presented to the ER with a chief complaint of palpitations. #A-fib with RVR Patient received Cardizem IVP 20 mg x 2 in the ED C/w IV Cardizem 5 mg/h for rate control Continue with IV low-dose heparin Consult cardiology Ordered echocardiogram Cardiac monitoring Resume metoprolol 12.5 mg p.o. twice daily, Rythmol 150 mg p.o. twice daily Continue with acetaminophen 650 mg p.o. every 6 hours as needed for pain #Chronic conditions GERD: Continue with Protonix while inpatient, continue with famotidine 20 mg p.o. twice daily DVT prophylaxis: IV heparin The patient is admitted with an anticipated greater than 2 midnight stay for evaluation of A-fib with the RVR CODE STATUS: Full code Discussed with: Patient Anticipated discharge place: Discharged Past Medical History Past Medical History: Atrial Fibrillation History of Any Multi-Drug Resistant Organisms: None Reported Past Surgical History: Hernia Repair, Orthopedic Surgery Past Psychological History: No Psychological Hx Reported Smoking Status: Never smoker Past Alcohol Use History: None Reported Past Drug Use History: None Reported Medications and Allergies Home Medications Medication Instructions Recorded Confirmed Type Metoprolol Succinate [Toprol XL] 12.5 mg PO BID 01/13/21 10/15/23 History Esomeprazole Magnesium [NexIUM 20 mg PO DAILY 10/27/21 10/15/23 History 24Hr] Propafenone [Rythmol] 150 mg PO BID 10/15/23 10/15/23 History Allergies Allergy/AdvReac Type Severity Reaction Status Date / Time bee pollen Allergy Anaphylaxis Verified 10/15/23 16:34 Physical Exam Vitals: Vital Signs Temp Pulse Resp BP Pulse Ox 10/15/23 21:18 112 H 16 90/63 98 10/15/23 20:30 128 H 20 84/67 98 10/15/23 18:41 66 20 114/70 99 10/15/23 18:14 50 L 18 108/71 99 10/15/23 17:34 116 H 20 108/71 97 10/15/23 16:30 132 H 20 115/75 97 10/15/23 15:36 97.4 F L 113 H 20 120/62 100 Intake and Output 10/15/23 10/15/23 10/15/23 06:59 14:59 22:59 Intake Total 8.167 Balance 8.167 Intake: Intake, IV Titration 8.167 Amount Diltiazem 125 mg In 8.167 Sodium Chloride 0.9% 100 ml @ 5 MG/HR 5 mls/hr IV .Q24H [facility] Rx#:[id number] Other: Weight 86.183 kg Results CBC & Chem 7: 10/15/23 16:38 10/15/23 16:38
[2023-10-15 22:47] VITALS: TEMP 97.6
[2023-10-16 03:33] LABS: Prothrombin Time 11.1 sec (10.0-12.5)
[2023-10-16 03:38] LABS: African American GFR (CKD) >90 (>60 ml/min/1.73 sqM); Anion Gap 4 mmol/L; Blood Urea Nitrogen 14 mg/dL (9-20); Calcium 8.3 mg/dL (8.4-10.2); Carbon Dioxide 22 mmol/L (22-30); Chloride 112 mmol/L (98-107); Glucose 80 mg/dL (74-99); Magnesium 1.9 mg/dL (1.6-2.3); Non-African American GFR(CKD) >90 (>60 ml/min/1.73 sqM); Sodium 138 mmol/L (137-145)
[2023-10-16 04:12] LABS: Basophils % (A) 0 %; Eosinophils # (A) 0.2 k/uL (0-0.7); Eosinophils % (A) 2 %; HCT 44.8 % (39.0-53.0); HGB 14.6 gm/dL (13.0-17.5); Lymphocytes # (A) 2.6 k/uL (1.0-4.8); Lymphocytes % (A) 37 %; MCH 30.8 pg (25.0-35.0); MCHC 32.6 g/dL (31.0-37.0); MCV 94.6 fL (80.0-100.0); Monocytes # (A) 0.3 k/uL (0-1.0); Monocytes % (A) 5 %; Neutrophils # (A) 3.8 k/uL (1.3-7.7); Neutrophils % (A) 54 %; Platelet Count 217 k/uL (150-450); RBC 4.73 m/uL (4.30-5.90); RDW 12.7 % (11.5-15.5)
--- NOTE | 2023-10-16 07:37 | P.CRDCN ---
History of Present Illness Consult date: 10/16/23 History of present illness: The patient is a very pleasant 63-year-old gentleman with a past medical history significant for paroxysmal atrial fibrillation with no other cardiovascular morbidity who is currently on type Ic antiarrhythmic medication using propafenone who was admitted to the hospital with atrial fibrillation with RVR. The patient is known to have paroxysmal atrial fibrillation and has been maintaining normal sinus mechanism for the last several years. His atrial fibrillation is extremely symptomatic. He did change his antiacid medications yesterday and he believes since he did that he went into atrial fibrillation with RVR where he felt dizzy and lightheaded and he was experiencing palpitation was no presyncope or syncope and no symptoms of chest pain or chest discomfort or shortness of breath. He came into the hospital where he underwent further evaluation including an EKG showed atrial fibrillation/flutter with RVR subsequently he was started on Cardizem drip and converted to normal sinus mechanism. He is on heparin IV at this point. He was not on any oral anticoagulation because of a [id number] is 0. The patient never had a TIA or CVA and no diabetes or hypertension and no heart failure and no peripheral arterial disease. He is in sinus mechanism at this point. He is back on AV sandy david agents metoprolol and also type Ic antiarrhythmic medication using the propafenone. The blood work came in to be unremarkable. The EKG as described above with the chest x-ray did not show any acute abnormalities. The examination is remarkable for stable vital signs with regular rate and rhythm and soft systolic murmur and clear breathing sounds bilaterally and no edema was noted in the lower extremities Assessment Paroxysmal atrial fibrillation Atrial fibrillation with RVR and currently the patient is in sinus mechanism Plan The patient would like to be discharged home I am going to stop the heparin No need for oral anticoagulation at this point Continue the current medical regimen including beta-david and propafenone Follow-up with the patient as an outpatient Past Medical History Past Medical History: Atrial Fibrillation 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; History of Any Multi-Drug Resistant Organisms: None Reported Past Surgical History: Hernia Repair, Orthopedic Surgery Past Anesthesia/Blood Transfusion Reactions: No Reported Reaction Past Psychological History: No Psychological Hx Reported Smoking Status: Never smoker Past Alcohol Use History: None Reported Past Drug Use History: None Reported Medications and Allergies Home Medications Medication Instructions Recorded Confirmed Type Metoprolol Succinate [Toprol XL] 12.5 mg PO BID 01/13/21 10/15/23 History Esomeprazole Magnesium [NexIUM 20 mg PO DAILY 10/27/21 10/15/23 History 24Hr] Propafenone [Rythmol] 150 mg PO BID 10/15/23 10/15/23 History Allergies Allergy/AdvReac Type Severity Reaction Status Date / Time bee pollen Allergy Anaphylaxis Verified 10/15/23 16:34 Physical Exam Vitals: Vital Signs Temp Pulse Pulse Resp BP BP Pulse Ox 10/16/23 03:20 64 18 96/62 99 10/15/23 23:20 124 H 18 124/87 97 10/15/23 21:18 112 H 16 90/63 98 10/15/23 21:05 97.6 F 105 H 18 109/75 98 10/15/23 20:30 128 H 20 84/67 98 10/15/23 18:41 66 20 114/70 99 10/15/23 18:14 50 L 18 108/71 99 10/15/23 17:34 116 H 20 108/71 97 10/15/23 16:30 132 H 20 115/75 97 10/15/23 15:36 97.4 F L 113 H 20 120/62 100 Intake and Output 10/15/23 10/16/23 10/16/23 22:59 06:59 14:59 Intake Total 8.167 40.25 Balance 8.167 40.25 Intake: Intake, IV Titration 8.167 40.25 Amount Diltiazem 125 mg In 8.167 40.25 Sodium Chloride 0.9% 100 ml @ 5 MG/HR 5 mls/hr IV .Q24H [facility] Rx#:[id number] Other: Voiding Method Toilet Weight 86.183 kg 88 kg Results 10/16/23 02:56 10/16/23 02:56 Cardiac Enzymes 10/15/23 10/15/23 10/15/23 Range/Units 16:38 16:38 21:15 AST 29 (17-59) U/L Troponin I <0.012 <0.012 (0.000-0.034) ng/mL 10/16/23 Range/Units 00:28 AST (17-59) U/L Troponin I <0.012 (0.000-0.034) ng/mL Coagulation 10/15/23 10/16/23 10/16/23 Range/Units 16:38 02:56 02:56 PT 10.5 11.1 (10.0-12.5) sec APTT 28.1 48.1 H (22.0-30.0) sec CBC 10/15/23 10/16/23 Range/Units 16:38 02:56 WBC 5.1 7.0 (3.8-10.6) k/uL RBC 5.36 4.73 (4.30-5.90) m/uL Hgb 16.5 14.6 (13.0-17.5) gm/dL Hct 50.0 44.8 (39.0-53.0) % Plt Count 264 217 (150-450) k/uL Comprehensive Metabolic Panel 10/15/23 10/16/23 Range/Units 16:38 02:56 Sodium 142 138 (137-145) mmol/L Potassium 4.4 4.0 (3.5-5.1) mmol/L Chloride 107 112 H (98-107) mmol/L Carbon Dioxide 24 22 (22-30) mmol/L BUN 15 14 (9-20) mg/dL Creatinine 1.00 0.85 (0.66-1.25) mg/dL Glucose 96 80 (74-99) mg/dL Calcium 9.7 8.3 L (8.4-10.2) mg/dL AST 29 (17-59) U/L ALT 26 (4-49) U/L Alkaline Phosphatase 61 (38-126) U/L Total Protein 7.8 (6.3-8.2) g/dL Albumin 4.8 (3.5-5.0) g/dL Current Medications Generic Name Dose Route Start Last Admin Trade Name Freq PRN Reason Stop Dose Admin Acetaminophen 650 mg 10/15/23 20:54 Acetaminophen Tab 325 Mg Tab PO Q6HR PRN Mild Pain or Fever > 100.5 Famotidine 20 mg 10/15/23 21:00 10/15/23 22:50 Famotidine 20 Mg Tab PO 20 mg BID NEHA Administration Heparin Sodium (Porcine) 0 unit 10/15/23 19:23 Heparin Sodium 1,000 Un/Ml (10ml Vl) IV PER PROTOCOL PRN Low PTT Protocol Diltiazem HCl 125 mg/ Sodium 125 mls @ 5 mls/hr 10/15/23 16:40 10/16/23 03:03 Chloride IV 0 mg/hr .Q24H NEHA 0 mls/hr Infusion 5 MG/HR Heparin Sodium/Sodium Chloride 250 mls @ 10.342 mls/hr 10/15/23 19:30 20:32 25,000 unit/ Sodium Chloride IV 12 units/kg/hr .Q24H NEHA 10.342 mls/hr Administration Protocol 12 UNITS/KG/HR Metoprolol Succinate 12.5 mg 10/16/23 09:00 Metoprolol Succinate (Er) 25 Mg Tab.Er.24h PO BID [facility] Naloxone HCl 0.2 mg 10/15/23 20:54 Naloxone 0.4 Mg/Ml 1 Ml Vial IV Q2M PRN Opioid Reversal Pantoprazole Sodium 40 mg 10/16/23 07:30 Pantoprazole 40 Mg Tablet PO AC-BRKFST [facility] Propafenone HCl 150 mg 10/16/23 09:00 Propafenone 150 Mg Tab PO BID [facility] Tramadol HCl 50 mg 10/15/23 20:54 Tramadol 50 Mg Tab PO Q6H PRN Moderate Pain (Scale 4 to 6) Intake and Output 10/15/23 10/16/23 10/16/23 22:59 06:59 14:59 Intake Total 8.167 40.25 Balance 8.167 40.25 Intake: Intake, IV Titration 8.167 40.25 Amount Diltiazem 125 mg In 8.167 40.25 Sodium Chloride 0.9% 100 ml @ 5 MG/HR 5 mls/hr IV .Q24H [facility] Rx#:[id number] Other: Voiding Method Toilet Weight 86.183 kg 88 kg 10/16/23 02:56 10/16/23 02:56
[2023-10-16 08:57] VITALS: BP 117/76; PULSE 63; RESP 16
[2023-10-16] MEDS: ASPIRIN 81 MG PO SCH (08:58)
[2023-10-16] MEDS: METOPROLOL SUCCINATE (ER) 25 MG TAB.ER.24H PO SCH (08:58)
[2023-10-16] MEDS: PANTOPRAZOLE 40 MG TABLET PO SCH (08:58)
[2023-10-16] MEDS: PROPAFENONE 150 MG TAB PO SCH (08:58)
--- NOTE | 2023-10-16 10:17 | P.DS ---
Providers Date of admission: 10/15/23 20:54 Expected date of discharge: 10/16/23 Attending physician: Thong Horn MD Consults: 10/15/23 20:54 Consult Physician Routine Consulting Provider: Jerry Almanza Consult Reason/Comments: A fib with RvR Do you want consulting provider notified?: Yes Primary care physician: [facility] Hospital Course: Discharge Diagnosis: Atrial fibrillation with RVR. Patient converted and is currently maintaining sinus mechanism. He was evaluated by cardiology clearing him from cardiac perspective for discharge. CHADs2-VASc is 0, no need for anticoagulation. Continue cardiac medication regimen with Rythmol 150 mg twice daily and metoprolol 12.5 mg twice daily. Follow-up with PCP in 1 to 2 days and with automatic outsole cutter in 1 to 2 weeks. Palpitations, secondary to above History of paroxysmal atrial fibrillation. Continue cardiac medication regimen with Rythmol 150 mg twice daily and metoprolol 12.5 mg twice daily GERD. Continue Nexium 20 mg daily. Hospital Course: Patient is a pleasant 63-year-old male with a past medical history of paroxysmal atrial fibrillation not on anticoagulation, enlarged ascending aorta and ing uinal hernia status postrepair. He presented to the emergency department on 10/15/2023 secondary to a chief complaint of palpitations. On arrival to our facility patient underwent evaluation in the emergency department. Vital signs upon arrival show blood pressure 120/62, heart rate 113, respiratory rate 20, temp 97.4 F, and SpO2 100% on room air. EKG completed showing atrial fibrillation with a rapid ventricular rate of 126 bpm. Chest x-ray completed negative for acute cardiopulmonary process. Completed and reviewed. CBC unremarkable. Coagulation profile normal findings. D-dimer 0.33. BMP normal findings. Magnesium 1.9. Liver profile unremarkable. TSH 1.030. Troponin less than 0.012 and proBNP of 361. Urine drug screen was negative. Patient received multiple Cardizem boluses and was started on Cardizem infusion as well as heparin infusion for anticoagulation. Patient admitted under services with consultation to cardiology. Troponins were trended overnight all negative at less than 0.012 x 3 draws. CHADs2-VASc is 0. Patient converted and is currently maintaining sinus mechanism. Physical exam: Vital signs reviewed and stable. General: Nontoxic, no distress and appears stated age. Derm: Skin warm and dry, normal coloration for ethnicity. Head: Atraumatic, normocephalic and symmetric. Eyes: EOMs intact, no lid lag, and anicteric sclera Mouth: no lip lesions, mucus membranes moist Cardiovascular: regular rate and rhythm with normal S1S2, no murmur, positive posterior tibial pulses bilaterally, and cap refill < 2 seconds. Lungs: Respirations even, regular, and unlabored on room air. Lungs CTA bilaterally, no rhonchi, no rales, no wheezing, and no accessory muscle usage. Abdominal: soft, nontender to palpation, no guarding, no appreciable organomegaly Ext: ROM intact. No gross muscle atrophy, no edema, no contractures Neuro: Speech clear, face symmetrical and CN II-XII grossly intact with no noted focal neuro deficits Psych: Alert and oriented to person, place, time, and situation. Appropriate and pleasant affect. A total of 31 minutes of time were spent preparing this complex discharge summary. Pt was discharged on 10/16/2023 at 10:10 AM. Patient was seen independently by Nurse Practitioner. This document was prepared using [employer] dictation software. Please allow for errors in bus trolley and taxi instructor while rare they do occur. I reviewed the documentation as provided by the ALBERT above, who is the original author of this note. I agree with the documented assessment and plan, with the following changes: none Patient Condition at Discharge: Stable Plan - Discharge Summary Discharge Rx Participant: No New Discharge Prescriptions: Continue Metoprolol Succinate [Toprol XL] 12.5 mg PO BID Esomeprazole Magnesium [NexIUM 24Hr] 20 mg PO DAILY Propafenone [Rythmol] 150 mg PO BID Discharge Medication List Metoprolol Succinate [Toprol XL] 12.5 mg PO BID 01/13/21 [History] Esomeprazole Magnesium [NexIUM 24Hr] 20 mg PO DAILY 10/27/21 [History] Propafenone [Rythmol] 150 mg PO BID 10/15/23 [History] Follow up Appointment(s)/Referral(s): Quinn Jones MD [STAFF PHYSICIAN] - 1 Week [facility]inic [Primary Care Provider] - 1-2 days Patient Instructions/Handouts: A-fib (Atrial Fibrillation) (DC) Activity/Diet/Wound Care/Special Instructions: Activity: As tolerated. Take breaks as needed. Diet: Heart healthy and carb consistent diet. Avoid salts, or foods with hidden salts such as canned or boxed foods and frozen dinners. Extra salt makes your heart work harder and traps the fluid in your body for longer. Special Instructions: Take all of your medications as directed and remember to keep all of your doctor's appointments and follow-up as needed. Again, thank you for your service. It is always an honor to have the opportunity to participate in the care for a [place]!!! Thank you for allowing us to participate in your care, it was truly a pleasure having you for our patient!!! . Discharge/Stand Alone Forms: Work/School Release Discharge Disposition: HOME SELF-CARE
== END 2023-10-16 10:39 | disposition home or self-care (01) | DRG 310 ==
LOC: EC 15:32 → 3SCARD 20:54
PROVIDERS: ADMIT Internal Medicine; ATTEND Internal Medicine
DX: I48.0 Paroxysmal atrial fibrillation (principal); I48.92 Unspecified atrial flutter; L11.1 Transient acantholytic dermatosis [Grover]; K21.9 Gastro-esophageal reflux disease without esophagitis; F17.290 Nicotine dependence, other tobacco product, uncomplicated; Z79.899 Other long term (current) drug therapy
CPT/HCPCS: 36415; 71046; 80048; 80053; 80306; 83735; 83880; 84443; 84484; 85025; 85379; 85610; 85730; 93005; 96365; 96366; 96375; 99291